=== PATIENT | female | born 1955 | race Hispanic/Latino ===

== ENCOUNTER 2019-04-18 04:42 | Observation (INO) | payer BC ==
[~2019-04-18] VITALS: Ht 154.9 cm; Wt 79.4 kg
[2019-04-18] MEDS ORDERED: FAMOTIDINE 20 MG/2 ML VIAL IV ONE (05:15)
[2019-04-18] MEDS ORDERED: ACETAMINOPHEN 325 MG TAB PO ONE (05:15)
[2019-04-18] MEDS ORDERED: ASPIRIN 81 MG CHEW TAB PO ONE (05:15)
[2019-04-18] MEDS ORDERED: ONDANSETRON HCL INJ 2MG/ML 2ML 2 MG/ML VIAL IV PRN ×3 (05:15→12:45)
[2019-04-18] MEDS ORDERED: NITROGLYCERIN 2% OINT 1 GM PKT TOP ONE (05:15)
[2019-04-18] MEDS ORDERED: ASPIRIN 325 MG TAB ONE (05:37)
[2019-04-18] MEDS ORDERED: NITROGLYCERIN 2% OINT 1 GM PKT ONE (05:37)
[2019-04-18] MEDS ORDERED: SODIUM CHLORIDE 0.9% 1000ML 1,000 ML IV STA (05:53)
[2019-04-18] MEDS ORDERED: SODIUM CHLORIDE 0.9% 1000ML 1,000 ML ONE ×2 (06:02→11:57)
[2019-04-18] MEDS ORDERED: IOPAMIDOL 370 MG/ML 200 ML INFUS..BTL INJ ONE ×2 (06:04→12:34)
[2019-04-18] MEDS ORDERED: SODIUM CHLORIDE 0.9% 50ML 50 ML ONE (06:05)
[2019-04-18] MEDS ORDERED: ENOXAPARIN SODIUM INJ 100 MG/ML SYR SC ONE ×2 (06:15→06:21)
[2019-04-18] MEDS ORDERED: ENALAPRILAT IV INJ 1.25 MG/ML VIAL IV PRN (06:15)
[2019-04-18] MEDS ORDERED: DIPHENHYDRAMINE HCL INJ 50 MG/ML VIAL IV PRN (06:15)
[2019-04-18] MEDS: FAMOTIDINE 20 MG/2 ML VIAL IV SCH ×2 (06:17→17:11)
[2019-04-18] MEDS ORDERED: HYDRALAZINE HCL 20 MG/ML VIAL ONE (06:29)
[2019-04-18] MEDS ORDERED: HYDRALAZINE HCL 20 MG/ML VIAL IV STA (06:34)
--- OUTSIDE RECORDS SUMMARY | 2019-04-18 06:34 | XMS REPORT ---
Author [facility] Address Unknown Phone Unavailable Care Team Providers Care Computer Security Specialist Name Role Phone BRIGIDO VARGAS Unavailable Unavailable Payers Payer Name Policy Type Policy Number Effective Date Expiration Date Problems This patient has no known problems. Allergies, Adverse Reactions, Alerts Allergy Name Allergy Type Status Severity Reaction(s) Onset Date Inactive Date Treating Clinician Comments No Known Allergies DA Active U 2013-03-24 00:00:00 Medications This patient has no known medications. Results Test Description Test Time Test Comments Text Results Atomic Results Result Comments Culture, Wound Surgical 2017-03-01 11:26:00 Specimen/Source: Wound/LT.SM. FINGERCollected: 02/24/2017 16:55 Status: Final Last Updated: 03/01/2017 11:26 Gram Stain (Final) (Final) 02/25/17 No organsims seen, No WBC's seen Culture Result (Final) (Final) 02/25/17 No growth 24 hours 02/26/17 No growth 48 hours 02/27/17 Smear from broth Gram positive cocci in clumps , Gramvariable rods 02/28/17 From broth Bacillus species (not anthrax) 03/01/17 Anaerobic culture:No anaerobes isolated at 3 days Isolate (Final) (Final) 02/28/17 From broth Staph-coag negative Isolate Staph-coag negative JESSICA (mcg/ml) Amoxicillin/Clav (AUG)>4/2 Resistant Ampicillin/Sulb (A/S) <=8/4 Resistant Cefazolin (CFZ) <=4 Resistant Ceftriaxone (LIVESTOCK LABORER) <=4 Resistant Chloramphenicol (C) <=8 Susceptible Ciprofloxacin (CP) <=1 Susceptible Clindamycin (CM) 0.5 Susceptible Erythromycin (E) <=0.25 Susceptible Gentamicin (GM) <=1 Susceptible Imipenem (IMP) >8 Resistant Levofloxacin (LEV) <=0.5 Susceptible Linezolid (LNZ) 1 Susceptible Oxacillin (OX1) 2 Resistant Penicillin (P) >8 Resistant Rifampin (RA) <=1 Susceptible Tetracycline (TE) <=1 Susceptible Trimethoprim/Sulfa <=0.5/9.Susceptible (SXT) 5 Vancomycin (VA) 2 Susceptible US THYROID ULTRASOUND CLINICAL INDICATION: E04.1 Nontoxic single thyroid noduleTECHNIQUE: Real time and doppler imaging of the thyroid is performed using a high frequency probe on the [employer] Pre[employer].Comparison Study: Comparison with exam 12/31/2017FINDINGS:Right lobe: 4.2 x 1.2 x 1.2 cm.Left lobe: 4.9 x 1.9 x 2.1 cm.Isthmus: 4.0 mm.Comments: 1. 0.9 x 0.4 x 0.6 cm cyst superior pole right thyroid, unchanged.2. 0.5 x 0.2 x 0.4 cm hypoechoic nodule mid right thyroid, with small calcifications, unchanged.3. 2.3 x 1.7 x 2.1 cm complex nodule inferior right gland (previous 2.6 x 1.6 x 1.8 cm).4. 2.0 x 1.4 x 1.5 cm superior left gland (previous 2.0 x 1.2 x 1.4 cm).5. 1.2 x 0.6 x 0.8 cm hypoechoic nodule in the mid left gland it appeared as if it were to nodules on previous exam.IMPRESSION:1. No significant change in gland size.2. Multiple nodules again seen.3. No significant change with measurement of complex inferior right gland nodule slightly smaller than previous exam. Continued surveillance are that there is a of left superior nodule can be considered. US THYROID ULTRASOUND CLINICAL INDICATION: E04.2 Nontoxic multinodular goiterTECHNIQUE: Real time and doppler imaging of the thyroid is performed using a high frequency probe on the [employer] Pre[employer].Comparison Study: noneFINDINGS:Right lobe: 4.3 x 1.1 x 1.0 cm.Left lobe: 4.9 x 1.9 x 1.6 cm.Isthmus: 1.6 mm.Comments: Multiple thyroid nodules are demonstrated. 0.9 x 0.6 cm right mid, 0.6 x 0.5 cm right inferior mid (with calcifications), 2.0 x 1.4 cm left mid, 2.6 x 1.9 x 1.6 cm left inferior and additional smaller thyroid nodules are demonstrated bilaterally.IMPRESSION:Multinodular goiter; consider FNA of left superior thyroid nodule based upon size and sonographic appearance. CR - XRAY XRAY DEXA BONE DENSITY CLINICAL INDICATION: N95.9 Unspecified menopausal and perimenopausal disorder TECHNIQUE: Bone densitometry is performed using the Hologic Dexa. Imaging of the spine and hip are performed. Quantitative analysis is accomplished.FINDINGS:COMPARISON: NoneThe BMD at the left femoral neck is 0.710 gms/cm.sq. This is consistent with young adult T- score of -1.4 and age matched Z-score of 0.0.The BMD at the right femoral neck is 0.686 gms/cm.sq. This is consistent with young adult T-score of -1.6 and age matched Z-score of -0.2.Average bone mineral density of L1 - L4 is 0.779 gms/cm.sq. This is consistent with young adult T-score of -2.4 and age matched Z-score of -0.8.IMPRESSION:WHO diagnostic category is osteopenia/borderline osteoporosis based upon lumbar spine and osteopenia based upon bilateral femoral necks.Recommendation: 2-year follow-up
--- NOTE | 2019-04-18 06:48 | Diagnostic Imaging Report ---
EXAMINATION: CXR 2 VIEW - HOPD INDICATION: ^[id number] ^[id number] COMPARISON: None FINDINGS: PA and lateral views TUBES and LINES: None. LUNGS: Lungs are well inflated. There is no evidence of pneumonia or pulmonary edema. PLEURA: No pleural effusion or pneumothorax. HEART AND MEDIASTINUM: The cardiomediastinal silhouette is unremarkable. BONES AND SOFT TISSUES: No acute osseous lesion. Soft tissues are unremarkable. UPPER ABDOMEN: No free air under the diaphragm. IMPRESSION: No acute thoracic abnormality. Signed by: Dr. Sam Tubbs MD on 04/18/2019 6:44 AM
--- NOTE | 2019-04-18 07:05 | Diagnostic Imaging Report ---
EXAM: CT Chest WITH contrast (PE Protocol) INDICATION: Chest pain. COMPARISON: Same day chest x-ray TECHNIQUE: Chest was scanned utilizing a multidetector helical scanner from the lung apex through the level of the diaphragm after administration of IV contrast. Thin section reconstructions were obtained with special concentration on the pulmonary arteries. Coronal and sagittal reformations were obtained. Dose modulation, iterative reconstruction, and/or weight based adjustment of the mA/kV was utilized to reduce the radiation dose to as low as reasonably achievable. Pulmonary embolism protocol was performed. IV CONTRAST: 100 mL of Isovue-370 COMPLICATIONS: None RADIATION DOSE: Total DLP: 391.99 mGy*cm Estimated effective dose: (DLP x 0.014 x size factor) mSv CTDIvol has been reviewed. It is below the limits set by the Radiation Protocol Committee (RPC). FINDINGS: LINES/ TUBES: None. LUNGS AND AIRWAYS: No filling defect is identified within the pulmonary arteries to the segmental level. 5 mm right upper lobe nodule. Mild bilateral lower lung field subsegmental atelectasis. Mild haziness of the lung flynn, suggestive of mild interstitial edema. Left upper lobe calcified granuloma. Airways are normal. PLEURA: The pleural spaces are clear. HEART AND MEDIASTINUM: Left thyroid hypodense nodule No mediastinal, hilar or axillary lymphadenopathy. The heart is normal in size.. There is no pericardial effusion. . Main pulmonary artery measures 3.3 cm in diameter and the ascending aorta measures 4 cm. UPPER ABDOMEN: Left hepatic lobe hypodensity is probably a cyst. Evidence of gastric surgery. Small hiatal hernia. BONES: The visualized bony thorax is within normal limits. SOFT TISSUES: Unremarkable. IMPRESSION: No pulmonary emboli. Suspected mild pulmonary edema. 5 mm right upper lobe nodule. Without risk factors, no follow-up is necessary. With risk factors, follow-up with low-dose chest CT in one year is optional. Distended main pulmonary artery, suggestive of pulmonary hypertension. Ectatic ascending thoracic aorta. Left thyroid hypodense nodule. Recommend correlation with thyroid ultrasound. Signed by: Dr. Sam Tubbs MD on 04/18/2019 7:01 AM
--- NOTE | 2019-04-18 07:45 | NUR ---
received pt via stretcher EMS from free standing ER. no acute distress noted. denies chest pain at this time. states CP alleviated after nitro received. oriented to room and use of call light, call light place within reach. PIV 20gause to right AC noted and saline locked.
[2019-04-18 08:00] VITALS: BP 132/63
[2019-04-18 08:06] VITALS: BP 132/63
[2019-04-18] MEDS: ACETAMINOPHEN 325 MG TAB PO PRN (08:48)
[2019-04-18 09:41] LABS: CREATINE KINASE 66 IU/L (29-168)
[2019-04-18] MEDS ORDERED: HYDRALAZINE HCL 20 MG/ML VIAL IV PRN (11:00)
[2019-04-18 11:20] VITALS: BP 96/54
[2019-04-18] MEDS ORDERED: SODIUM CHLORIDE 0.9% 1000ML 1,000 ML IV SCH ×3 (11:30→12:42)
[2019-04-18] MEDS ORDERED: LISINOPRIL2.5 MG PO (11:36)
[2019-04-18] MEDS ORDERED: SYNTHROID75 MCG PO (11:36)
[2019-04-18] MEDS: NITROGLYCERIN 2% OINT 1 GM PKT TOP SCH ×2 (12:00→17:11)
--- NOTE | 2019-04-18 12:00 | NUR ---
patient off unit for heart cath with possible intervention.
[2019-04-18] MEDS ORDERED: LIDOCAINE HCL 2% LOCAL 20 ML VIAL ONE (12:34)
[2019-04-18] MEDS ORDERED: FENTANYL CITRATE/PF 100MCG/2 ML INJ ONE (12:34)
[2019-04-18] MEDS ORDERED: HEPARIN SOD/SOD CHLORIDE 2,000 ML ONE (12:34)
[2019-04-18] MEDS ORDERED: MIDAZOLAM HCL 2 MG/2 ML VIAL ONE (12:34)
--- NOTE | 2019-04-18 12:50 | NUR ---
received pt from laboratory clerk, denies pain. dressing to right groin C/D/I. reinforced teaching on bedrest and maintaining RLE straight. call light placed within reach.
[2019-04-18] MEDS: SODIUM CHLORIDE 0.9% 1000ML 1,000 ML IV SCH ×2 (12:58→23:00)
[2019-04-18 14:50] LABS: BASOPHILS % 0.5 % (0.0-1.0); EOSINOPHILS % 0.2 % (0.0-6.0); HEMATOCRIT 37.8 % (34.2-44.1); HEMOGLOBIN 12.4 g/dL (12.0-16.0); LYMPHOCYTES # (AUTO) 1.5 (1.0-3.2); LYMPHOCYTES % 25.6 % (18.0-39.1); MEAN CORPUSCULAR HEMOGLOBIN 30.8 pg (28-32); MEAN CORPUSCULAR HGB CONC 32.8 g/dL (31-35); MONOCYTES # (AUTO) 0.6 (0.2-0.8); MONOCYTES % 9.4 % (4.4-11.3); NEUTROPHILS # (AUTO) 3.8 (2.1-6.9); NEUTROPHILS % 63.8 % (38.7-80.0); PLATELET COUNT 272 x10e3/uL (140-360); RED BLOOD COUNT 4.02 x10e6/uL (3.6-5.1); RED CELL DISTRIBUTION WIDTH 13.2 % (11.7-14.4)
[2019-04-18] MEDS: HYDROCODONE/APAP 5MG-325MG TAB PO PRN ×2 (15:05→21:22)
[2019-04-18 15:08] LABS: CREATINE KINASE 59 IU/L (29-168)
[2019-04-18 15:09] LABS: CHOL/HDL RATIO 2.6 (3.0-3.6)
[2019-04-18 15:29] LABS: THYROID STIMULATING HORMONE 0.557 uIU/mL (0.350-4.940)
[2019-04-18 16:11] VITALS: BP 136/75
--- NOTE | 2019-04-18 18:04 | NUR ---
bedrest s/p heart cath completed at this time. assisted patient with ambulating to toilet. no c/o pain to right groin. right groin tissue soft upon palpation. posterior tibial pulses 3+ bilateral. call light placed within reach.
--- NOTE | 2019-04-18 18:51 | Consultation ---
DATE OF CONSULTATION: 04/18/2019 REASON FOR CONSULTATION: Chest pain. HISTORY OF PRESENT ILLNESS: This is a 63-year-old female, who presents to outside ER with complaint of chest pain starting about 3:00 a.m., relieved with nitroglycerin. The patient was transferred to [facility] for further evaluation. Cardiology was consulted. The patient was seen in room, who reports history of hypertension and hypothyroidism, on therapy, lisinopril 5 mg daily, levothyroxine 75 mcg daily and a multivitamin. The patient reports the chest pain started about 3:00 a.m. this morning and reports chest pain as pressure tightness across her chest, as if someone was sitting on her chest. Therefore, when she went to the ER for further evaluation. She reports in the ER, they gave her nitroglycerin, which had subsided the chest pain. However, this morning reports the chest pain has reappeared, chest pain, pressure tightness across her chest, now radiating to her jaw and to her bilateral shoulders with some shortness of breath. The patient is very concerned with her symptoms. Options were discussed and the patient elects for definitive evaluation with left heart catheterization. Risks and benefits discussed with the patient. PAST MEDICAL HISTORY: Hypertension and hypothyroidism. PAST SURGICAL HISTORY: Gastric bypass in 2011. FAMILY HISTORY: Mother is alive, apparently age 87, has history of hypertension. Father is at age 84, apparently history of COPD and CHF. 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 She reports tobacco use some years ago, quit about 2008. Also reports alcohol use, wine on evening daily basis. HOME MEDICATIONS: Include: 1. Lisinopril 5 mg once a day. 2. Multivitamin once a day. 3. Levothyroxine 75 mcg once a day. ALLERGIES: NO KNOWN ALLERGIES. REVIEW OF SYSTEMS: GENERAL: Denies any weight change, fatigue, weakness, fevers, chills, night sweats. SKIN: No rashes or bruises reported. HEENT: Denies any headaches, nausea, vomiting, any blurred vision, double vision, any earaches, tinnitus, epistaxis, sore throat, swollen neck. CARDIAC: Reports chest pain as above. Denies any palpitations. Positive for dyspnea on exertion. Denies any orthopnea or PND. Reports intermittent lower extremity edema. RESPIRATORY: Positive for shortness of breath. Denies any hemoptysis. VASCULAR: Intermittent lower extremity edema. Denies any claudication. MUSCULOSKELETAL: Reports generalized joint pains, back pain. NEUROLOGIC: Denies any tremors, weakness, paralysis, blackout, seizures. HEMATOLOGY: Denies any anemia, easy bruising. ENDOCRINE: Denies any heat or cold intolerance. No polyuria, polydipsia, or polyphagia. PHYSICAL EXAMINATION: VITAL SIGNS: Height 61 inches, weight 175 pounds, BMI 33. Temperature 97.3, pulse 60, respiratory rate 18, blood pressure 132/63, pulse ox 98% on 2 L. GENERAL: Appears stated age, reliable informant. SKIN: No rashes, bruises noted. HEENT: Normocephalic. Pupils equal and reactive. Extraocular movements intact. NECK: Trachea midline. Positive for JVD. No carotid bruit noted. HEART: Regular rate and rhythm. PMI about 4th and 5th intercostal space. LUNGS: Bilateral breath sounds with fine crackles at the bases. Good airway entry and exit. ABDOMEN: Soft, nontender, and nondistended. No organomegaly noted. MUSCULOSKELETAL: Good muscle strength throughout. VASCULAR: Slight lower extremity edema +1, +2 bilateral radial pulses, +1 DP and PT pulses bilaterally. NEUROLOGIC: Cranial nerves II through XII seem intact. LABORATORY DATA: Sodium 142, potassium 4, chloride 107, bicarb 28, BUN 16, creatinine 0.7. Hemoglobin 12, hematocrit 38, platelets 268. D-dimer 852. CT chest, no PE, however, there is mild pulmonary edema and also noted with right upper lobe nodule, a 5 mm also left thyroid nodule noted. EKG, normal sinus khloe, heart rate about 56. ASSESSMENT: 1. Unstable angina. 2. Hypertension. 3. Hypothyroidism. 4. Right lower lobe nodule. 5. Left thyroid nodule. PLAN: The patient presents with very typical chest pain symptoms, unstable in nature. The patient is requesting definitive evaluation. Left heart catheterization discussed at length including risks and benefits. The patient wishes to proceed with left heart catheterization. Questions were answered. Further recommendation are as post left heart catheterization. Thank you very much for this consult. Dictated by Manoj Smith NP Sherin Whitaker MD DC/VANNESA /[id number]
--- NOTE | 2019-04-18 19:31 | Operative Report ---
DATE OF PROCEDURE: 04/18/2019 SURGEON: Netta Whitaker MD PROCEDURES PERFORMED: 1. Left heart catheterization, coronary angiography. 2. Left ventriculography. 3. Vascular closure of the right common femoral arteriotomy. INDICATION FOR PROCEDURE: A 63-year-old lady, history of hypertension, who presents to this institution with escalating chest pain symptoms, substernal pressure-like sensation with radiation to the shoulders, highly concerning for unstable angina and ongoing since this morning. The patient needed nitroglycerin paste for resolution of symptoms and has continuous low-level pain and discomfort in her chest and shoulders region. We were highly concerned for an acute coronary syndrome with class 4 angina. DESCRIPTION OF PROCEDURE: The patient was brought down to the cardiac catheterization laboratory on an urgent basis where the groin was prepped and draped in usual sterile fashion. A 1% lidocaine solution was used to numb the right groin region. Access to right femoral artery was obtained utilizing a 5-Canadian micropuncture system and a 6-Canadian short femoral sheath was placed. Selective coronary angiography of the [place] left and right coronary artery was performed with JL-4 and 3DRC diagnostic catheters. Angled pigtail catheter was placed in the ventricle for ventricular and hemodynamic assessment of ventricular filling pressures. After noting no significant disease, we decided to conclude the case. Femoral angiogram was performed revealing femoral artery stick and a 6-Canadian vascular closure device successfully deployed achieving hemostasis. COMPLICATIONS: None. ESTIMATED BLOOD LOSS: None. FINDINGS: 1. Left main is angiographically normal. Gives rise to an LAD and circumflex branch. 2. LAD and its branches are angiographically normal. 3. Left circumflex artery terminates two mid marginal branches. This vessel and its branches are angiographically normal. 4. The RCA is dominant, gives rise to right PDA and right PLV system. This vessel and its branches are angiographically normal. 5. Left ventricular ejection fraction is 60% with end-diastolic pressure of 17 mmHg. There is no significant LV to aortic pullback gradient. PLAN/RECOMMENDATIONS: 1. The patient has angiographically normal coronary arteries. We will need to entertain alternative diagnoses. 2. Aggressive risk factor modification and medical therapy. 3. Five to six hour bedrest post cardiac catheterization. 4. We will continue to follow this patient. MD HECTOR Smith/KRYSTAL /[id number]
--- NOTE | 2019-04-18 19:41 | History and Physical ---
CHIEF COMPLAINT: Chest pain. HISTORY OF PRESENT ILLNESS: A 63-year-old female with known history of hyperlipidemia, hypothyroidism, and questionable hypertension is what she states, also chronic smoker in the past, comes into the ED when she woke up suddenly around 3 a.m. with sudden onset of substernal chest pain that radiated to her bilateral shoulders. The patient reports that the chest pain continued and so she was driven by her daughter into the ER and given nitroglycerin paste. She did report some associated nausea, but no vomiting. Denies any diaphoresis. She has never had any heart issues in the past. She has never seen a truck jumper before. Denies any recent sickness, cough, congestion, or any other complaints. The patient was seen and evaluated at the bedside on the medical floor. Currently, she is doing well and scheduled for a left heart catheterization. REVIEW OF SYSTEMS: Pertinent positives: Substernal chest pain. Pertinent negatives: Denies any palpitation, nausea, vomiting, diarrhea, dysuria, hematuria, frequency, urgency, lightheadedness, dizziness, abdominal pain, headaches, shortness of breath, cough, congestion, fever, or any other complaints. The rest of the 14-point review of systems have been reviewed with the patient and are negative. ALLERGIES: NO KNOWN DRUG ALLERGIES. HOME MEDICATIONS: 1. Levothyroxine 75 mcg daily. 2. Lisinopril 2.5 mg daily. PAST MEDICAL HISTORY: Hypothyroidism, hypertension, and chronic smoker in the past, quit 10 years ago. PAST SURGICAL HISTORY: None. FAMILY HISTORY: Hypertension and diabetes. SOCIAL HISTORY: No drugs. No alcohol. She was a former smoker, quit 10 years ago. LAB FINDINGS: Show CK 66, CK-MB 1.4. Troponin is 0.001. Microbiology, none. IMAGING STUDIES: Chest x-ray is normal. Chest CT shows no pulmonary embolism. mild pulmonary edema. 5 mm right upper lobe nodule. She has been admitted for and pulmonary hypertension, and thyroid nodule, but she reports she follows with her developmental behavioral physician in relation to this. PHYSICAL EXAMINATION: VITAL SIGNS: Temperature is 96.4, pulse 62, respiratory rate of 16, blood pressure 132/60, and pulse ox 97% on room air. GENERAL: In no acute distress, alert and oriented x3. Cooperative on examination. HEENT: Head is normocephalic and atraumatic. Eyes; pupils are equal, round, and reactive to light bilaterally. Extraocular movements are intact bilaterally. Throat, no evidence of erythema or exudates in the posterior pharynx. She has poor dentition. NECK: Supple. Good range of motion. PULMONARY: Clear to auscultation bilaterally. No wheezing, no rales, no rhonchi, and no crackles appreciated. CARDIOVASCULAR: Positive S1, S2. No murmurs, rubs, or gallops appreciated. ABDOMEN: Soft, nondistended, and nontender to palpation. Bowel sounds present. MUSCULOSKELETAL: Strength is 5/5 throughout. No evidence of any muscle deficits on examination. No weakness appreciated. NEUROLOGICAL: Cranial nerves II through XII grossly intact. No evidence of any neurological deficits on exam. SKIN: Intact. Warm to touch. Good cap refill. PSYCHIATRIC: Normal affect and mood. EXTREMITIES: No edema. Good range of motion throughout. IMPRESSION: 1. Chest pain, seems to be typical in nature based on the history. 2. Hypertension. 3. Hypothyroidism. PLAN: At this time, Cardiology has been consulted, scheduled for a left heart catheterization later this afternoon. Continue with aspirin and statin. Get lipid panel, hemoglobin A1c, and TSH level. Resume SANDY inhibitor after the heart cath the following day. Continue with cardioprotective medications. Resume same home medications. Get a.m. labs, CBC and chemistry. We will encourage the patient for ambulation. She is currently going to be n.p.o. for left heart catheterization. We will start a heart-healthy diet after the heart catheterization. Once she is being cleared by Cardiology, we will discharge her home. She is otherwise doing well. She is stable during my evaluation. I have discussed the plan of care with the nursing staff. MD LAZARA Courtney/VANNESA /[id number]
[2019-04-18 20:00] VITALS: BP 126/60
[2019-04-18] MEDS: ZOLPIDEM TARTRATE 5 MG TAB PO PRN (21:26)
[2019-04-18 22:16] VITALS: BP 136/75
[2019-04-18 23:11] LABS: CREATINE KINASE 45 IU/L (29-168)
[2019-04-19] VITALS (8 sets, daily range): BP systolic 100–164; BP diastolic 56–82
[2019-04-19] MEDS: SODIUM CHLORIDE 0.9% 1000ML 1,000 ML IV SCH ×2 (03:59→19:00)
[2019-04-19] MEDS: HYDROCODONE/APAP 5MG-325MG TAB PO PRN ×2 (03:59→19:31)
[2019-04-19 04:57] LABS: BASOPHILS % 0.8 % (0.0-1.0); EOSINOPHILS # (AUTO) 0.1 (0.0-0.4); EOSINOPHILS % 1.2 % (0.0-6.0); HEMATOCRIT 32.8 % (34.2-44.1); HEMOGLOBIN 10.7 g/dL (12.0-16.0); LYMPHOCYTES # (AUTO) 1.5 (1.0-3.2); LYMPHOCYTES % 29.1 % (18.0-39.1); MEAN CORPUSCULAR HEMOGLOBIN 30.8 pg (28-32); MEAN CORPUSCULAR HGB CONC 32.6 g/dL (31-35); MEAN CORPUSCULAR VOLUME 94.5 fL (81-99); MONOCYTES # (AUTO) 0.4 (0.2-0.8); MONOCYTES % 8.2 % (4.4-11.3); NEUTROPHILS % 60.1 % (38.7-80.0); PLATELET COUNT 237 x10e3/uL (140-360); RED BLOOD COUNT 3.47 x10e6/uL (3.6-5.1); RED CELL DISTRIBUTION WIDTH 13.3 % (11.7-14.4)
[2019-04-19 05:27] LABS: ALANINE AMINOTRANSFERASE 331 IU/L (0-55); ALBUMIN/GLOBULIN RATIO 1.4 (0.8-2.0); ALKALINE PHOSPHATASE 146 IU/L (40-150); ANION GAP 6.8 mmol/L (8-16); BLOOD UREA NITROGEN 8 mg/dL (7-26); BUN/CREATININE RATIO 12 (6-25); CALCIUM 8.6 mg/dL (8.4-10.2); CARBON DIOXIDE 23 mmol/L (22-29); CHLORIDE 108 mmol/L (98-107); CREATININE, SERUM 0.65 mg/dL (0.57-1.11); EST GLOMERULAR FILTRATION RATE > 60 ML/MIN (60-); GLUCOSE 82 mg/dL (74-118); POTASSIUM 3.8 mmol/L (3.5-5.1); SODIUM 134 mmol/L (136-145)
[2019-04-19] MEDS: LEVOTHYROXINE SODIUM 75 MCG TAB PO SCH (05:58)
[2019-04-19] MEDS: NITROGLYCERIN 2% OINT 1 GM PKT TOP SCH ×2 (06:00)
[2019-04-19 06:23] LABS: CHOL/HDL RATIO 2.1 (3.0-3.6)
[2019-04-19] MEDS: FAMOTIDINE 20 MG/2 ML VIAL IV SCH (06:47)
--- NOTE | 2019-04-19 07:15 | NUR ---
Walking rounds done and report received. Patient is awake and alertx3 in NAD. Right groin cath site intact, no hematoma or bleeding noted. Tele#[phone], [email or web address]. Patient instructed to call for assistance as needed and verbalized understanding. Call pearl within reach.
--- NOTE | 2019-04-19 07:20 | NUR ---
report given to Clara COOPER, iv intact, alert and oriented, groin site checked
[2019-04-19] MEDS: ASPIRIN 81 MG ENTERIC COATED PO SCH (08:23)
[2019-04-19] MEDS ORDERED: ASPIRIN 325 MG TAB PO SCH (09:00)
[2019-04-19] MEDS: ACETAMINOPHEN 325 MG TAB PO PRN (10:26)
--- NOTE | 2019-04-19 11:50 | NUR ---
Discharge cancelled per Dr. Hawkins for elevated LFT's. MD discussed with patient.
--- NOTE | 2019-04-19 14:19 | Diagnostic Imaging Report ---
EXAM: US ABDOMEN COMPLETE INDICATION: Elevated LFTs. COMPARISON: None TECHNIQUE: Transverse and longitudinal aguirre scale and color doppler sonographic images of the abdomen were obtained. FINDINGS: LIVER Measures 17.6 cm in the right midclavicular line. Multiple echogenic foci in the liver with a starry celeste appearance. No hepatic steatosis. Normal contour without evidence of mass. SPLEEN 10.0 cm in maximum diameter. Normal echogenicity, no masses. GALLBLADDER Gallbladder sludge. No gallbladder wall thickening, distension, stone, or pericholecystic fluid. Negative reported sonographic Garcia's sign. BILE DUCTS No intra nor extra-hepatic biliary dilation. Common bile duct measures 0.4 cm PANCREAS: Visualized portions are normal. RIGHT KIDNEY: 10.4 cm Echogenicity: Normal Collecting System: No hydronephrosis Stones: None Cyst/Mass: None LEFT KIDNEY: 10.9 cm Echogenicity: Normal Collecting System: No hydronephrosis Stones: None Cyst/Mass: None VESSELS: Aorta: Visualized portions are within normal size limits Inferior Vena Cava: Visualized portions are normal Main Portal Vein: 0.8 cm, normal size with hepatopetal flow. FREE FLUID: None IMPRESSION: Hepatomegaly. Starry celeste appearance of the liver, which is a nonspecific finding, but could be seen in hepatitis or fasting state. Gallbladder sludge without sonographic evidence of cholecystitis. Signed by: Dr. Catarino Taylor MD on 04/19/2019 2:16 PM
--- NOTE | 2019-04-19 14:50 | Progress Note ---
DATE: 04/19/2019 SUBJECTIVE: The patient is doing well today with no complaints. She had a left heart catheterization yesterday, found to have clear coronaries, does not need a PCI. She was found to have elevated LFTs. Reports also her urine is more dark. She also describes lower back pain, but no evidence of any flank pain or any suprapubic pain. LABORATORY DATA: Findings show white count of 4.9, hemoglobin 10.7, hematocrit 32.8, and platelets of 237. Chemistry, sodium 134, potassium 3.8, chloride 108, bicarb 23, anion gap of 6.8, BUN is 8, and creatinine is 0.65. Glucose 82. Hemoglobin A1c is 5.2. Calcium is 8.6, total albumin 2.1, AST 392, and ALT 331. Alkaline phosphatase 146. Troponins are all negative. LDL is 86. IMAGING STUDIES: None. OBJECTIVE: VITAL SIGNS: Temperature is 97.6, pulse is 51, respiratory rate 16, blood pressure 147/76, and pulse ox 99% on room air. GENERAL: Not in acute distress. Alert and oriented x3. Cooperative on examination. HEENT: Head is normocephalic and atraumatic. Eyes, pupils are equal, round, and reactive to light bilaterally. Extraocular movements are intact. NECK: Supple. Good range of motion. THROAT: No evidence of erythema or exudates in the posterior pharynx. Has poor dentition. PULMONARY: Clear to auscultation bilaterally. No wheezing. No rales. No rhonchi. No crackles appreciated. CARDIOVASCULAR: Positive S1 and S2. No murmurs, rubs, or gallops. ABDOMEN: Soft, nondistended, and nontender to palpation. Bowel sounds present. MUSCULOSKELETAL: Strength is 5/5 throughout. No evidence of any muscle deficits on examination. No weakness appreciated. NEUROLOGICAL: Cranial nerves II through XII grossly intact. No evidence of any neurological deficits on exam. SKIN: Intact. Warm to touch. Good cap refill. PSYCHIATRIC: Normal affect and mood. EXTREMITIES: No edema. Good range of motion throughout. ASSESSMENT: 1. Chest pain, atypical in nature. Negative left heart catheterization. 2. Hypertension. 3. Elevated transaminases, no etiology. 4. Hypothyroidism. PLAN: At this time, no further workup needed by Cardiology. Continue with cardioprotective medications, aspirin, and statin upon discharge. In relation to her elevated LFTs, I will go ahead and get a right upper quadrant ultrasound, CT of abdomen and pelvis with IV contrast and GI consultation. Get CMP repeat in the morning as well as a lipase right now. Await GI recommendations on this case. Otherwise, the patient is tolerating diet well, has no other complaints. I am not sure of the etiology of the elevated LFTs. We will see what it reveals and go from there. MD LAZARA Courtney/KRYSTAL /[id number]
[2019-04-19] MEDS ORDERED: SODIUM CHLORIDE 0.9% 50ML 50 ML ONE (15:23)
[2019-04-19] MEDS ORDERED: IOPAMIDOL 370 MG/ML 200 ML INFUS..BTL INJ ONE (15:24)
--- NOTE | 2019-04-19 16:00 | NUR ---
Patient off unit to CT
--- NOTE | 2019-04-19 16:11 | Diagnostic Imaging Report ---
EXAM: CT Abdomen and Pelvis with contrast INDICATION: Elevated LFTs COMPARISON: Abdominal ultrasound 04/19/2019, CT Chest 04/18/2019. TECHNIQUE: Abdomen and pelvis were scanned utilizing a multidetector helical scanner from the lung base to the pubic symphysis after administration of IV contrast. Coronal and sagittal reformations were obtained. Routine protocol was performed. Scan was performed when during portal venous phase. IV CONTRAST: 100 cc of Isovue 370 ORAL CONTRAST: Water COMPLICATIONS: None RADIATION DOSE: Total DLP: 665.6 mGy*cm Dose modulation, iterative reconstruction, and/or weight based adjustment of the mA/kV was utilized to reduce the radiation dose to as low as reasonably achievable. FINDINGS: LINES and TUBES: None. LOWER THORAX: Please refer to chest CT from 04/18/2019 for details of intrathoracic findings. HEPATOBILIARY: Hepatomegaly. Left hepatic lobe cyst. No biliary ductal dilatation. There is a 1.9 cm hyperdense area with a somewhat linear internal hypodensity in the peripheral posterior aspect of segment 6. GALLBLADDER: No radio-opaque stones or sludge. No wall thickening. SPLEEN: No splenomegaly. PANCREAS: No focal masses or ductal dilatation. ADRENALS: No adrenal nodules KIDNEYS/URETERS: Kidneys enhance symmetrically. No evidence of hydronephrosis, solid mass, or stone. 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 No evidence of wall thickening or distension. Appendix is normal. PELVIC ORGANS/BLADDER: Calcified fibroid in the uterus. LYMPH NODES: No lymphadenopathy. VESSELS: Unremarkable. PERITONEUM / RETROPERITONEUM: No free air or fluid. BONES AND SOFT TISSUES: There is stranding in the right inguinal region, likely representing access site for recent cardiac angiography. CONCLUSION: A 1.9 cm hyperdense area in the peripheral aspect of segment 6 may represent perfusional change or a liver lesion. A liver protocol CT or MRI is suggested for further evaluation. Hepatomegaly. Signed by: Dr. Catarino Taylor MD on 04/19/2019 4:07 PM
--- NOTE | 2019-04-19 19:00 | NUR ---
Report given to oncoming nurse.
[2019-04-19] MEDS: FAMOTIDINE 20 MG TAB PO SCH (21:52)
[2019-04-19] MEDS: ZOLPIDEM TARTRATE 5 MG TAB PO PRN (23:21)
[2019-04-20 00:33] VITALS: BP 139/73
[2019-04-20] MEDS: SODIUM CHLORIDE 0.9% 1000ML 1,000 ML IV SCH ×3 (05:00→21:20)
[2019-04-20] MEDS: LEVOTHYROXINE SODIUM 75 MCG TAB PO SCH (05:16)
[2019-04-20 05:24] VITALS: BP 120/59
[2019-04-20 06:11] LABS: BASOPHILS % 0.2 % (0.0-1.0); HEMATOCRIT 31.4 % (34.2-44.1); HEMOGLOBIN 10.5 g/dL (12.0-16.0); LYMPHOCYTES # (AUTO) 1.1 (1.0-3.2); LYMPHOCYTES % 12.1 % (18.0-39.1); MEAN CORPUSCULAR HEMOGLOBIN 31.2 pg (28-32); MEAN CORPUSCULAR HGB CONC 33.4 g/dL (31-35); MEAN CORPUSCULAR VOLUME 93.2 fL (81-99); MONOCYTES # (AUTO) 0.9 (0.2-0.8); NEUTROPHILS # (AUTO) 6.8 (2.1-6.9); NEUTROPHILS % 77.2 % (38.7-80.0); PLATELET COUNT 230 x10e3/uL (140-360); RED BLOOD COUNT 3.37 x10e6/uL (3.6-5.1); RED CELL DISTRIBUTION WIDTH 13.3 % (11.7-14.4)
[2019-04-20 06:12] LABS: ALANINE AMINOTRANSFERASE 219 IU/L (0-55); ALBUMIN/GLOBULIN RATIO 1.3 (0.8-2.0); ALKALINE PHOSPHATASE 186 IU/L (40-150); ANION GAP 8.3 mmol/L (8-16); BLOOD UREA NITROGEN 5 mg/dL (7-26); BUN/CREATININE RATIO 8 (6-25); CALCIUM 8.9 mg/dL (8.4-10.2); CARBON DIOXIDE 24 mmol/L (22-29); CHLORIDE 106 mmol/L (98-107); EST GLOMERULAR FILTRATION RATE > 60 ML/MIN (60-); GLUCOSE 96 mg/dL (74-118); POTASSIUM 3.3 mmol/L (3.5-5.1); SODIUM 135 mmol/L (136-145)
--- NOTE | 2019-04-20 06:55 | NUR ---
Patient endorsed to next shift for continuity of care
[2019-04-20 06:57] LABS: FERRITIN 96.06 ng/mL (4.63-204.00)
--- NOTE | 2019-04-20 07:00 | NUR ---
received am report from rn. pt is awake in bed, no s/s of distress. pt complaining of headache constant headache that she has had since admission. will provide tylenol, notify dr and continue to monitor.
[2019-04-20 07:14] LABS: FOLATE 14.8 ng/mL (7.0-15.4)
[2019-04-20] MEDS: LISINOPRIL 2.5 MG TAB PO SCH (07:52)
[2019-04-20 08:13] VITALS: BP 118/56
[2019-04-20] MEDS ORDERED: GADOBENATE DIMEGLUMINE 1 ML IV ONE (09:39)
[2019-04-20] MEDS: ASPIRIN 81 MG ENTERIC COATED PO SCH (10:30)
[2019-04-20] MEDS: FAMOTIDINE 20 MG TAB PO SCH ×2 (10:30→20:41)
[2019-04-20] MEDS: ACETAMINOPHEN 325 MG TAB PO PRN ×2 (10:30→22:05)
[2019-04-20] MEDS ORDERED: ONDANSETRON HCL 4 MG ORAL DISINTEGRATING TAB PO PRN (11:15)
[2019-04-20 11:39] VITALS: BP 112/53
--- NOTE | 2019-04-20 13:39 | Diagnostic Imaging Report ---
MRI abdomen CPT code: 23956 Indication: Incidental liver mass on CT ^LIVER MASS PROTOCOL ^Y Technique: Axial T1 nonfat sat in and out of phase, axial T2 fat sat, coronal T2 nonfat sat, axial DWI and ADC MR images of the abdomen were obtained before and after the administration of 15 cc of gadolinium. Axial T1 fat sat GRE dynamic images in precontrast, arterial, venous and delayed phases were obtained. Comparison: CT abdomen/pelvis 04/19/2019 Findings: Liver: Normal signal. A cyst in segment 2/4 measures 1.5 x 1.0 cm. A 4 mm cyst is identified in segment 6. Rounded area of increased T2 signal abuts the capsule in the posterior aspect of segment 6 measures 1.9 x 2.7 cm. There are 2 subcentimeter foci of decreased T2 and T1 signal within. With contrast administration, there is a wedge-shaped area of hypervascularity measuring 2.6 x 2.5 cm. Within this is more focal hypervascularity in the rounded configuration measuring 1.4 x 1.2 cm. On the portal venous phase, it has a more uniform enhancing appearance with absence of enhancement of one of the subcentimeter foci mentioned above. On the delayed phase, there is nearly iso-signal without no evidence of washout and there is no evidence of enhancement of the subcentimeter foci. There are 2 round hypervascular foci in segment 6 (series 10, image 74) and segment 5 abutting the gallbladder (series 10, image 90). These measure approximately 6 to 7 mm. There is no evidence of washout on delayed series. Portal vein: Normal in size and widely patent. Hepatic veins: Normal. Hepatic artery: Conventional branching. Gallbladder: Present and contains a tiny amount of sludge and a tiny gallstone. No gallbladder wall thickening or pericholecystic fluid. Biliary tree: No intrahepatic or extrahepatic biliary ductal dilatation. Pancreas: Normal T1 and T2 signal. No mass or ductal dilatation. Spleen: Normal size and signal. No mass Adrenal glands: No mass Kidneys: No hydronephrosis. No mass Lymph nodes: No enlarged abdominal or periaortic lymph nodes Bowel: Stomach and visualized portions of the small bowel and large bowel are normal in diameter with normal wall thickness. Mild burden of diverticulosis coli. Vasculature: Unremarkable. Pelvis: Visualized pelvic organs are unremarkable. Peritoneum/retroperitoneum: No free fluid or fluid collection. Lung bases: Trace posterior pleural effusions. Bones: Normal marrow signal. No focal osseous lesions. Soft tissues: Unremarkable. IMPRESSION: 1. Mass in the right lobe of the liver has no diagnostic features by MRI. However, the presence of iso-signal and the absence of washout on delayed sequences raises the possibility of an FNH. Recommend confirmation with MRI utilizing a liver specific contrast agent such as gadoxetate. 2. Scattered hepatic cysts as described above. A subcentimeter hypervascular lesion in the right lobe the liver is likely a shunt. 3. No abnormalities of the gallbladder and biliary tree. 4. Diverticulosis coli. Signed by: Dr. Lilly Rivera MD on 04/20/2019 1:36 PM
[2019-04-20 16:14] VITALS: BP 104/51
--- NOTE | 2019-04-20 16:25 | NUR ---
REMOVED R GROIN DRESSING FROM HEART CATH PROCEDURE DONE ON 04/18/19. SCANT BLEEDING ON GAUZE, NO ACTIVE BLEEDING/DRAINAGE. NO S/S OF INFECTION. PLACED NEW DRESSING.
--- NOTE | 2019-04-20 19:30 | NUR ---
Rounding done & report received. Patient resting in bed, awake & alert. Respirations even & unlabored, no distress noted. Tele in place. IV fluids running to R AC, patent & no infiltration noted. Patient denies any CP or issues at this time. Call light within reach, side railsx2 raised & bed set to lowest position.
--- NOTE | 2019-04-20 19:57 | Diagnostic Imaging Report ---
Hepatobiliary Scan with Gallbladder Ejection Fraction Clinical information: Upper abdominal pain; abnormal LFTs; Report: Following intravenous administration of 6.6 millicuries of Tc-99m mebrofenin, dynamic images of the abdomen in the anterior projection were obtained through 25 minutes. Sincalide (CCK analog) 1.6 micrograms was administered intravenously over 30 minutes with additional imaging for determination of gallbladder ejection fraction. Perfusion to the liver is normal. Extraction of tracer from the blood pool by the liver parenchyma is normal. Tracer is seen promptly within the biliary tract. The gallbladder begins to fill by 7 minutes post-injection of tracer and fills adequately. Tracer is seen in the small bowel by 12 minutes. The gallbladder ejection fraction with administration of sincalide is 96% (normal greater than 40%). Impression: 1. Filling of the gallbladder excludes the diagnosis of acute cystic duct obstruction/acute cholecystitis. 2. Normal gallbladder ejection fraction of 96% does not support the clinical diagnosis of chronic cholecystitis/gallbladder dyskinesia. Signed by: Dr. Shelbie Lu M.D. on 04/20/2019 7:54 PM
[2019-04-20 20:00] VITALS: BP 129/61
--- NOTE | 2019-04-20 20:42 | Progress Note ---
DATE: 04/20/2019 SUBJECTIVE: The patient is doing well today with no complaints. Imaging studies were performed today, found to have no conclusive results. HIDA scan is pending for today. Discussed case with the patient and awake per GI final recommendations. Vital signs: Temperature is 97.8, pulse 52, respiratory rate 16, blood pressure 104/51, pulse ox 96% on room air. LAB FINDINGS: Show white count 8.8, hemoglobin 10.5, hematocrit 31, and platelets of 230. Chemistry: Sodium 135, potassium 3.3, chloride 106, bicarb 21, anion gap of 8.3, BUN is 5, creatinine is 0.6. Her LFTs are down trending. Total bilirubin is 1.5, AST is 167, and ALT is 219, alkaline phosphatase 186, and iron saturation 7%. PHYSICAL EXAMINATION: GENERAL: Not in acute distress. Alert and oriented x3. Cooperative on examination. HEENT: Head is normocephalic and atraumatic. Eyes; pupils are equal, round, and reactive to light bilaterally. Extraocular movements are intact bilaterally. Throat, no evidence of erythema or exudates in the posterior pharynx. Has poor dentition. PULMONARY: Clear to auscultation bilaterally. No wheezing, no rales, no rhonchi, no crackles appreciated. CARDIOVASCULAR: Positive S1, S2. No murmurs, rubs, or gallops. ABDOMEN: Soft, nondistended, and nontender to palpation. Bowel sounds present. MUSCULOSKELETAL: Strength is 5/5 throughout. No evidence of any muscle deficits on examination. No weakness appreciated. NEUROLOGIC: Cranial nerves II through XII grossly intact. No evidence of any neurological deficits on exam. SKIN: Intact. Warm to touch. Good cap refill. PSYCHIATRIC: Normal affect and mood. EXTREMITIES: No edema. Good range of motion throughout. IMPRESSION: 1. Atypical chest pain, left heart catheterization found to be negative. 2. Hypertension. 3. Elevated transaminases now downtrending. 4. Hypothyroidism. 5. Liver lesions seen on MRI. PLAN: At this time, continue cardioprotective meds, Cardiology is following. No further workup was needed. MRI of the abdomen noted. Right upper quadrant ultrasound noted. CT abdomen and pelvis noted, but now pending HIDA scan. She may need an outpatient MRI with IV contrast to further delineate the cyst that was found on the liver, but this can be done as an outpatient. Wait for final GI recommendations. Hopefully active plan to discharge the patient tomorrow if I get clearance by GI. MD LAZARA Courtney/VANNESA /[id number]
[2019-04-21] VITALS: BP 118/59
[2019-04-21 00:03] VITALS: BP 129/61
[2019-04-21 04:00] VITALS: BP 126/60
[2019-04-21 05:46] LABS: BASOPHILS % 0.5 % (0.0-1.0); EOSINOPHILS # (AUTO) 0.2 (0.0-0.4); HEMATOCRIT 30.7 % (34.2-44.1); LYMPHOCYTES # (AUTO) 1.8 (1.0-3.2); LYMPHOCYTES % 30.8 % (18.0-39.1); MEAN CORPUSCULAR HEMOGLOBIN 31.2 pg (28-32); MEAN CORPUSCULAR HGB CONC 32.6 g/dL (31-35); MEAN CORPUSCULAR VOLUME 95.6 fL (81-99); MONOCYTES # (AUTO) 0.8 (0.2-0.8); MONOCYTES % 14.3 % (4.4-11.3); NEUTROPHILS # (AUTO) 2.9 (2.1-6.9); NEUTROPHILS % 50.7 % (38.7-80.0); PLATELET COUNT 202 x10e3/uL (140-360); RED BLOOD COUNT 3.21 x10e6/uL (3.6-5.1); RED CELL DISTRIBUTION WIDTH 13.6 % (11.7-14.4)
[2019-04-21] MEDS: LEVOTHYROXINE SODIUM 75 MCG TAB PO SCH (06:19)
[2019-04-21 06:20] LABS: ALANINE AMINOTRANSFERASE 158 IU/L (0-55); ALBUMIN 2.8 g/dL (3.5-5.0); ALBUMIN/GLOBULIN RATIO 1.2 (0.8-2.0); ALKALINE PHOSPHATASE 175 IU/L (40-150); ANION GAP 7.6 mmol/L (8-16); BLOOD UREA NITROGEN 6 mg/dL (7-26); BUN/CREATININE RATIO 11 (6-25); CALCIUM 8.7 mg/dL (8.4-10.2); CARBON DIOXIDE 24 mmol/L (22-29); CHLORIDE 109 mmol/L (98-107); CREATININE, SERUM 0.57 mg/dL (0.57-1.11); EST GLOMERULAR FILTRATION RATE > 60 ML/MIN (60-); GLUCOSE 89 mg/dL (74-118); POTASSIUM 3.6 mmol/L (3.5-5.1); SODIUM 137 mmol/L (136-145)
--- NOTE | 2019-04-21 07:00 | NUR ---
RECEIVED AM REPORT FROM RN. PT IS RESTING IN BED, NO S/S OF DISTRESS. CALL LIGHT WITHIN REACH, BED IN LOWEST POSITION, SIDE RAILS UP
[2019-04-21 07:41] VITALS: BP 147/65
[2019-04-21] MEDS: FAMOTIDINE 20 MG TAB PO SCH (07:46)
[2019-04-21 07:47] VITALS: BP 147/65
[2019-04-21] MEDS: LISINOPRIL 2.5 MG TAB PO SCH (07:47)
[2019-04-21] MEDS ORDERED: IRON SUCROSE 100 MG in SODIUM CHLORIDE 0.9% 100 ML 100 ML IV SCH (08:00)
[2019-04-21] MEDS: SODIUM CHLORIDE 0.9% 1000ML 1,000 ML IV SCH (08:28)
[2019-04-21] MEDS ORDERED: CYANOCOBALAMIN INJ 1,000 MCG/ML VIAL IM SCH (09:00)
--- NOTE | 2019-04-21 11:06 | NUR ---
IVETH spoke with Dr. Justine Yeager. He states pt is cleared to discharge from his standpoint. ALLISON Denney was notified. Dr. Hawkins currently rounding.
[2019-04-21 11:31] VITALS: BP 145/68
--- NOTE | 2019-04-21 20:33 | Discharge Summary ---
FINAL DISCHARGE DIAGNOSES: 1. Atypical chest pain status post left heart catheterization, found to be negative with clear and clean coronaries. No intervention needed. 2. Hypertension. 3. Acute elevated transaminases, now downtrending and improved. 4. Hypothyroidism. 5. Liver lesion seen on MRI, needs outpatient followup with Gastroenterology in which the patient verbalized understanding. CONSULTANTS: GI and Cardiology. VITAL SIGNS: Temperature 98.5, pulse 64, respiratory rate is 18, blood pressure 147/65, pulse ox 95% on room air. LAB FINDINGS: Show white count was 5.7, hemoglobin 10, hematocrit is 30, platelets of 202. Chemistry; sodium 137, potassium 3.6, chloride 109, bicarb 24, anion gap of 7.6, BUN 6, creatinine 0.57, glucose is 89, calcium is 8.7. Iron saturation 7%. LFT downtrended; total bilirubin is 1, AST is 101, ALT 158, alkaline phosphatase 175. Albumin was 2.8. Folic acid 14. Vitamin B12 of 499. TSH is 0.557. Hepatitis panel all negative. MICROBIOLOGY: None. IMAGING STUDIES: Chest x-ray on admission was found to be negative. CTA of the chest shows no pulmonary emboli. Suspect mild pulmonary edema. 5 mm right upper lobe nodule, needs outpatient followup. I discussed with the patient, she verbalized understanding and follow up with her PCP. Left thyroid hypodense nodule. She follows up with an associate professor of physics as an outpatient. CT abdomen and pelvis shows a 1.9 cm hypodense area in the peripheral aspect of segment , changes, there are liver lesions. HIDA scan shows a normal gallbladder ejection fraction of 96%. MRI of the abdomen; mass in the right lobe of the liver has no diagnostic features by MRI. I recommend outpatient followup with an MRI of the liver. There is some hepatic cyst seen. The patient verbalized to follow up as an outpatient with GI for further management and care. HOSPITAL COURSE: This is a 63-year-old female, who came in initially with complaints of sudden onset of chest pain. Cardiology was consulted. Cardiac enzymes were negative. The patient underwent a left heart catheterization and found to have no intervention needed. She had clear and clean coronaries. No intervention was needed by Cardiology. While here, she had acute onset of elevated transaminases requiring GI consultation. Imaging studies were performed, which showed no evidence of any gallbladder abnormalities, but did show a liver mass consistent with some hyperperfusion. She was recommended to follow up as an outpatient with GI. She was cleared for discharge by GI standpoint. At this time, she is doing well, tolerating diet well with no other complaints. She is to follow up with the appropriate consultants as described above in about 2 weeks' time. On the day of discharge, vital signs stable, labs reviewed and stable. The patient was seen, evaluated, examined thoroughly on the day of discharge, no other complaints. The patient verbalized understanding and agreed to plan of care, follow up accordingly as an outpatient with the primary care physician in 1 week and Cardiology and GI in 2 weeks' time. MEDICATIONS: See med reconciliation form. DISPOSITION: Home. CONDITION: Stable. DIET: Heart healthy. In the event of any worsening symptoms, the patient was advised to come back to the ED for further evaluation. Discharge summary took greater than 35 minutes. Once again, she verbalized that she will follow up as an outpatient GI specialist in terms of looking further into this liver lesion likely to be cyst or possibly hemangioma, but she will follow up accordingly as an outpatient. MD LAZARA Courtney/VANNESA /[id number]
== END 2019-04-21 12:35 | disposition home or self-care (01) ==
LOC: FSED 04:42 → ERHOLD 06:07 → MED/SURG2 07:56
PROVIDERS: ADMIT Internal Medicine; ATTEND Internal Medicine
DX: R07.89 Other chest pain (principal); R00.1 Bradycardia, unspecified; I10 Essential (primary) hypertension; E03.9 Hypothyroidism, unspecified; Z98.84 Bariatric surgery status; E78.5 Hyperlipidemia, unspecified; Z87.891 Personal history of nicotine dependence; Z82.49 Family history of ischemic heart disease and other diseases of the circulatory system; Z83.3 Family history of diabetes mellitus; R74.0 Nonspecific elevation of levels of transaminase and lactic acid dehydrogenase [LDH]; R79.89 Other specified abnormal findings of blood chemistry; K76.89 Other specified diseases of liver; K82.8 Other specified diseases of gallbladder; D64.9 Anemia, unspecified; Z72.89 Other problems related to lifestyle; Z86.010 Personal history of colon polyps; R91.8 Other nonspecific abnormal finding of lung field; E04.1 Nontoxic single thyroid nodule
CPT/HCPCS: 36415; 71046; 71260; 74177; 74183; 76700; 78227; 80053; 80061; 82550; 82553; 82607; 82728; 82746; 83036; 83540; 83690; 83880; 84443; 84466; 84484; 85025; 85045; 85379; 93005; 93306; 93458; 96360; 96361; 99284; A9537; C1760; C1769; G0378; J0360; J1200; J1650; J1756; J2001; J2250; J2405; J3420; J7030; Q9967

== ENCOUNTER 2020-04-04 13:02 | Emergency (ER) | payer BC ==
[~2020-04-04] VITALS: Ht 154.9 cm; Wt 77.1 kg
[~2020-04-04 13:02] MED LIST: LISINOPRIL2.5 MG PO; SYNTHROID75 MCG PO
--- OUTSIDE RECORDS SUMMARY | 2020-04-04 13:06 | XMS REPORT ---
Author Author [facility] t Organization [facility] Address [address] [place] [address] Phone Unavailable Care Team Providers Care Office Messenger Name Role Phone Sandor MARRERO PCP Sheri Hernandez Attphys Unavailable Elaine DOUGLASS Attphys Unavailable BRIGIDO VARGAS Attphys Unavailable DAElaine YAN Admphys Unavailable BRIGIDO VARGAS Admphys Unavailable Payers Payer Name Policy Type Policy Number Effective Date Ex[facility] Date [id number] 2014 00:00:00 [facility] Problems Condition Name Condition Details Condition Category Status Onset Date Resolution Date Last Treatment Date Treating Clinician Comments Source Chest pain at rest Chest pain at rest Problem Active [facility] Allergies, Adverse Reactions, Alerts Allergy Name Allergy Type Status Severity Reaction(s) Onset Date Inacti ve Date Treating Clinician Comments Source No Known Allergies DA Active U 2013-03-24 00:00:00 [facility] Medications Ordered Medication Name Filled Medication Name Start Date Stop Da te Current Medication? Ordering Clinician Indication Dosage Frequency Signature (SIG) Comments Components Source Levothyroxine Sodium (Synthroid) 75 Mcg Tab Levothyrox ine Sodium (Synthroid) 75 Mcg Tab Yes 75 [facility] Lisinopril 2.5 Mg Tablet Lisinopril 2.5 Mg Tablet Yes 2.5 Daily [facility] Procedures Procedure Date / Time Performed Performing Clinician [facility] e Magnetic resonance imaging of abdomen without then wit h contrast 2019-04-20 00:00:00 MELVA SANCHEZ [facility] US abdomen complete 2019-04-19 00:00:00 [facility] Computed tomography of abdomen and pelvis with contrast 2018 00:00:00 [facility] Encounters Start Date/Time End Date/Time [facility]counter Type Ad[email or web address] Department Encounter ID Source 2019-12-01 11:28:00 2019-12-01 11:28:00 Outpatient [facility] [id number] [facility] 2019-11-15 11:36:00 2019-11-15 11:36:00 Outpatient [facility] MED [id number] [facility] 2019-04-18 06:07:00 2019-04-21 12:35:00 Discharged Inpatient (obs) 1 PASTOR [facility] [id number] [facility] Results Test Description Test Time Test Comments Results Result Comments Source US THYROID ULTRASOUND 2019-06-01 13:45:56 CLINIC AL INDICATION: E04.1 Nontoxic single thyroid noduleTECHNIQUE: Real time and doppler imaging of the thyroid is performed using a high frequency probe on the [employer].Comparison Study: 04/08/2018FINDINGS:Right lobe: 3.4 x 1 x 1 cm.Left lobe: 4.4 x 1.7 x 1.7 cm.Isthmus: 2.5 mm.Comments: Few small cystic nodule is seen in the right lobe, largest measured 9 mm, stable.Left lobe is heterogeneous containing benign looking nodule inferiorly measured 2.4 x 1.8 x 1.5 cm, stable.Solid ISO echoic benign appearing nodule is seen in the left lobe measuring 1.7 x 1 cm, stable.Smaller 1.3 x 1.2 cm benign nodule is seen in the left lobe unchanged.IMPRESSION:1. Dominant left lobe with three stable/ benign appearing nodules .3. Few small benign cystic nodule in the right lobe, stable. Hepatitis A IgM Antibody 2019-04-21 08:48:00 Test Item Hepatitis A IgM Antibody (test code = 45437-4) Negative Negativ e [facility] B Surface Uayernv0383-59-14 08:48:00* Test Item Value Reference Range Interpretation Comments Hepatitis B Surface Antigen (test code = 5196-1) Negative Negat ailyn [facility] B Core IgM Peejtnah0974-49-58 08:48:00* Test Item Value Reference Range Interpretation Comments Hepatitis B Core IgM Antibody (test code = 36001-1) Negative Ne gative [facility] Zpyujfyt7162-82-36 08:48:00* Test Item Value Reference Range Interpretation Comments Hepatitis C Antibody (test code = 15670-6) 0.1 0.0-0.9 Negative: < 0.8 Indeterminate: 0.8 - 0.9 Positive: > 0.9 The CDC recommends that a positive HCV antibody result be followed up with a HCV Nucleic Acid Amplification test (722570).Performed at: [address] [id number] Director: Brian Momin MD, Phone: [phone] Hospitalodium Edogo0368-85-40 06:25:00 * Test Item Value Reference Range Interpretation Comments Sodium Level (test code = 2951-2) 137 136-145 [facility] CenterPotassium Scayh8016-35-46 06:25:00* Test Item Value Reference Range Interpretation Comments Potassium Level (test code = 2823-3) 3.6 3.5-5.1 [facility] CenterChloride Exowg8293-42-27 06:25:00* Test Item Value Reference Range Interpretation Comments Chloride Level (test code = 2075-0) 109 98-107 [facility] CenterCarbon Dioxide Emlxb2700-71-95 06:25:00* Test Item Value Reference Range Interpretation Comments Carbon Dioxide Level (test code = 2028-9) 24 22-29 [facility] CenterAnion Gig7139-97-84 06:25:00* Test Item Value Reference Range Interpretation Comments Anion Gap (test code = 58780-1) 7.6 8-16 [facility] CenterBlood Urea Gqjdioio8791-78-06 06:25:00* Test Item Value Reference Range Interpretation Comments Blood Urea Nitrogen (test code = 3094-0) 6 7-26 [facility] CenterCreatinine2019-06-13 06:25:00* Test Item Value Reference Range Interpretation Comments Creatinine (test code = 2160-0) 0.57 0.57-1.11 [facility] CenterBUN/Creatinine Bgjbv0105-63-71 06:25:00* Test Item Value Reference Range Interpretation Comments BUN/Creatinine Ratio (test code = 3097-3) 11 - [facility] CenterEstimat Glomerular Filtration Rate 2019-04-21 06:25:00* Test Item Value Reference Range Interpretation Comments Estimat Glomerular Filtration Rate (test code = 713711476) > 60 >60 Ranges were taken from the National Kidney Disease Education Program and the [facility] Kidney Foundation literature.Reference ranges:60 or greater: Nrlugt68-48 ( for 3 consecutive months): Chronic kidney disease 15 or less: Kidney failureThe University of [facility] M.[facility]. Anderson Cancer CenterGlucose Uqsmn2528-36-04 06:25:00* Test Item Value Reference Range Interpretation Comments Glucose Level (test code = ZCF1934) 89 74-118 [facility] CenterCalcium Srfgz2289-20-08 06:25:00* Test Item Value Reference Range Interpretation Comments Calcium Level (test code = 67011-9) 8.7 8.4-10.2 [facility] CenterTotal Evlxbkand3565-56-46 06:25:00* Test Item Value Reference Range Interpretation Comments Total Bilirubin (test code = 1975-2) 1.0 0.2-1.2 [facility] CenterAspartate Amino Transf (AST/SGOT) 2019-04-21 06:25:00* Test Item Value Reference Range Interpretation Comments Aspartate Amino Transf (AST/SGOT) (test code = Aspartate Amino Transf (AST/SGOT)) 101 5-34 [facility] CenterAlanine Aminotransferase (ALT/SGPT) 2019-04-21 06:25:00* Test Item Value Reference Range Interpretation Comments Alanine Aminotransferase (ALT/SGPT) (test code = 1742-6) 158 0-55 [facility] CenterTotal Shnorac8937-90-20 06:25:00* Test Item Value Reference Range Interpretation Comments Total Protein (test code = 2885-2) 5.2 6.5-8.1 [facility] CenterAlbumin2019-06-13 06:25:00* Test Item Value Reference Range Interpretation Comments Albumin (test code = 1751-7) 2.8 3.5-5.0 [facility] CenterGlobulin2019-06-13 06:25:00* Test Item Value Reference Range Interpretation Comments Globulin (test code = 12939-1) 2.4 2.3-3.5 [facility] CenterAlbumin/Globulin Rrlvn3866-02-20 06:25:00 * Test Item Value Reference Range Interpretation Comments Albumin/Globulin Ratio (test code = 1759-0) 1.2 0.8-2.0 [facility] CenterAlkaline Wtwyxuiiiof1593-04-60 06:25:00* Test Item Value Reference Range Interpretation Comments Alkaline Phosphatase (test code = 6768-6) 175 40-150 [facility] CenterWhite Blood Voruq8062-69-48 05:55:00* Test Item Value Reference Range Interpretation Comments White Blood Count (test code = 6690-2) 5.75 4.8-10.8 [facility] CenterRed Blood Lauah2996-49-14 05:55:00* Test Item Value Reference Range Interpretation Comments Red Blood Count (test code = 789-8) 3.21 3.6-5.1 [facility] CenterHemoglobin2019-06-13 05:55:00* Test Item Value Reference Range Interpretation Comments Hemoglobin (test code = 82085-5) 10.0 12.0-16.0 [facility] CenterHematocrit2019-06-13 05:55:00* Test Item Value Reference Range Interpretation Comments Hematocrit (test code = 4544-3) 30.7 34.2-44.1 [facility] CenterMean Corpuscular Tsnnxd8043-21-22 05:55:00* Test Item Value Reference Range Interpretation Comments Mean Corpuscular Volume (test code = 787-2) 95.6 81-99 [facility] CenterMean Corpuscular Ejxuwxlnwm6447-81-76 05:55:00* Test Item Value Reference Range Interpretation Comments Mean Corpuscular Hemoglobin (test code = 785-6) 31.2 28-32 [facility] CenterMean Corpuscular Hemoglobin Concent 2019-04-21 05:55:00* Test Item Value Reference Range Interpretation Comments Mean Corpuscular Hemoglobin Concent (test code = 786-4) 32.6 31-35 [facility] CenterRed Cell Distribution Tzbii6115-73-51 05:55:00* Test Item Value Reference Range Interpretation Comments Red Cell Distribution Width (test code = 55456-3) 13.6 11.7 -14.4 [facility] CenterPlatelet Bzuir7639-30-10 05:55:00* Test Item Value Reference Range Interpretation Comments Platelet Count (test code = 777-3) 202 140-360 [facility] CenterNeutrophils (%) (Auto)2019-04-21 05:55:00 * Test Item Value Reference Range Interpretation Comments Neutrophils (%) (Auto) (test code = 58472-1) 50.7 38.7-80.0 [facility] CenterLymphocytes (%) (Auto)2019-04-21 05:55:00 * Test Item Value Reference Range Interpretation Comments Lymphocytes (%) (Auto) (test code = 736-9) 30.8 18.0-39.1 [facility] CenterMonocytes (%) (Auto)2019-04-21 05:55:00* Test Item Value Reference Range Interpretation Comments Monocytes (%) (Auto) (test code = 5905-5) 14.3 4.4-11.3 [facility] CenterEosinophils (%) (Auto)2019-04-21 05:55:00 * Test Item Value Reference Range Interpretation Comments Eosinophils (%) (Auto) (test code = 713-8) 3.0 0.0-6.0 [facility] CenterBasophils (%) (Auto)2019-04-21 05:55:00* Test Item Value Reference Range Interpretation Comments Basophils (%) (Auto) (test code = 706-2) 0.5 0.0-1.0 [facility] CenterIM GRANULOCYTES %2019-04-21 05:55:00* Test Item Value Reference Range Interpretation Comments IM GRANULOCYTES % (test code = IM GRANULOCYTES %) 0.7 0.0- 1.0 [facility] CenterNeutrophils # (Auto)2019-04-21 05:55:00* Test Item Value Reference Range Interpretation Comments Neutrophils # (Auto) (test code = 751-8) 2.9 2.1-6.9 [facility] CenterLymphocytes # (Auto)2019-04-21 05:55:00* Test Item Value Reference Range Interpretation Comments Lymphocytes # (Auto) (test code = 92305-4) 1.8 1.0-3.2 [facility] CenterMonocytes # (Auto)2019-04-21 05:55:00* Test Item Value Reference Range Interpretation Comments Monocytes # (Auto) (test code = 742-7) 0.8 0.2-0.8 [facility] CenterEosinophils # (Auto)2019-04-21 05:55:00* Test Item Value Reference Range Interpretation Comments Eosinophils # (Auto) (test code = 711-2) 0.2 0.0-0.4 [facility] CenterBasophils # (Auto)2019-04-21 05:55:00* Test Item Value Reference Range Interpretation Comments Basophils # (Auto) (test code = 704-7) 0.0 0.0-0.1 [facility] CenterAbsolute Immature Granulocyte (auto 2019-04-21 05:55:00* Test Item Value Reference Range Interpretation Comments Absolute Immature Granulocyte (auto (layla t code = Absolute Immature Granulocyte (auto) 0.04 0-0.1 [facility] CenterHEPTOBILIARY W IQEZE4421-69-22 19:48:00 [place] [address] Patient Name: VAN VUONG MR #: [id number] : 1955 Age/Sex: 63/F Req #: [id number] [facility] Physician: LETY DOUGLASS MD Ordered by: MELVA SANCHEZ MD Report #: [id number] Location: [facility]/SURG Room/Bed: [facility] Procedure: [id number] NM /HEPTOBILIARY W PHARM Exam Date: 04/20/19 Exam Time: 1145 REPORT STATUS: Signed Hepa tobiliary Scan with Gallbladder Ejection Fraction Clinical information: Upp er abdominal pain; abnormal LFTs; Report: Following intravenous administra tion of 6.6 millicuries of Tc-99m mebrofenin, dynamic images of the abdomen in the anterior projection were obtained through 25 minutes. Sincalide (CCK tam log) 1.6 micrograms was administered intravenously over 30 minutes with additi onal imaging for determination of gallbladder ejection fraction. Perfusio n to the liver is normal. Extraction of tracer from the blood pool by the [facility] er parenchyma is normal. Tracer is seen promptly within the biliary tract. T he gallbladder begins to fill by 7 minutes post-injection of tracer and fills adequately. Tracer is seen in the small bowel by 12 minutes. The gallbladder ejection fraction with administration of sincalide is 96% (normal greater than 40%). Impression: 1. Filling of the gallbladder excludes the diagn osis of acute cystic duct obstruction/acute cholecystitis. 2. 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 Signed by: Dr. Hamlet Lu M.D. on 04/20/2019 7:54 PM Dictated By: HAMLET LU MD 53 Transcribed By: ERVIN on 04/20/191953 COPY TO: MELVA SANCHEZ MD MRI ABDOMEN [id number] 13:09:00 [place] [address] Patient Name: VAN VUONG MR #: [id number] : 1955 Age/Sex: 63/F Req #: [id number] Adm Physician: LETY DOUGLASS MD Ordered by: MELVA SANCHEZ MD Report #: [id number] Location: MED/SURG2 Room/Bed: [facility] Procedure: [id number] MR I/MRI ABDOMEN WOW Exam Date: Exam Time: REPORT STATUS: Signed MRI abdomen CPT code: 41913 Indication: Incidental liver mass on CT LIVER MASS PROTOCOL Y Technique: Axial T1 nonfat sat in and out of phase, axial T2 fat sat, coronal T2 nonfat sat, axial DWI and ADC MR images of the abdomen were obtai loree before and after the administration of 15 cc of gadolinium. Axial T1 fat sat GRE dynamic images in precontrast, arterial, venous and delayed phases wer e obtained. Comparison: CT abdomen/pelvis 04/19/2019 Findings: L iver: Normal signal. A cyst in segment 2/4 measures 1.5 x 1.0 cm. A 4 mm c yst is identified in segment 6. Rounded area of increased T2 signal abuts the capsule in the posterior aspect of segment 6 measures 1.9 x 2.7 cm. There are 2 subcentimeter foci of decreased T2 and T1 signal within. With contrast administration, there is a wedge-shaped area of hypervascularity measuring 2.6 x 2.5 cm. Within this is more focal hypervascularity in the rounded configura tion measuring 1.4 x 1.2 cm. On the portal venous phase, it has a more uniform enhancing appearance with absence of enhancement of one of the subcentimeter foci mentioned above. On the delayed phase, there is nearly iso-signal without no evidence of washout and there is no evidence of enhancement of the subcent imeter foci. There are 2 round hypervascular foci in segment 6 (series 10, image 74) and segment 5 abutting the gallbladder (series 10, image 90). These measure approximately 6 to 7 mm. There is no evidence of washout on delayed se jude. Portal vein: Normal in size and widely patent. Hepatic veins: Elli l. Hepatic artery: Conventional branching. Gallbladder: Present and conta ins a tiny amount of sludge and a tiny gallstone. No gallbladder wall thickeni ng or pericholecystic fluid. Biliary tree: No intrahepatic or extrahepatic biliary ductal dilatation. Pancreas: Normal T1 and T2 signal. No mass or du ctal dilatation. Spleen: Normal size and signal. No mass Adrenal gland s: No mass Kidneys: No hydronephrosis. No mass Lymph nodes: No enlarge d abdominal or periaortic lymph nodes Bowel: Stomach and visualized portion s of the small bowel and large bowel are normal in diameter with normal wall t hickness. Mild burden of diverticulosis coli. Vasculature: Unremarkable. Pelvis: Visualized pelvic organs are unremarkable. Peritoneum/retroper itoneum: No free fluid or fluid collection. Lung bases: Trace posterior ple ural effusions. Bones: Normal marrow signal. No focal osseous lesions. Soft tissues: Unremarkable. IMPRESSION: 1. Mass in the right lobe of the liver has no diagnostic features by MRI. However, the presence of iso-sign al and the absence of washout on delayed sequences raises the possibility of a n FNH. Recommend confirmation with MRI utilizing a liver specific contrast age nt such as gadoxetate. 2. Scattered hepatic cysts as described above. A sub centimeter hypervascular lesion in the right lobe the liver is likely a shunt. 3. No abnormalities of the gallbladder and biliary tree. 4. Diverticu losis coli. Signed by: Dr. Scarlet Falk MD on 04/20/2019 1:36 PM Dictated By: SCARLET FALK MD 1336 Transcribed By: ERVIN on 04/20/19 1336 COPY TO: MELVA SANCHEZ MD Vitamin B12 Btcpo1628-97-21 07:18:00* Test Item Value Reference Range Interpretation Comments Vitamin B12 Level (test code = 48259-0) 499 213-816 [facility] CenterFolate2019-06-12 07:18:00* Test Item Value Reference Range Interpretation Comments Folate (test code = 2284-8) 14.8 7.0-15.4 [facility] CenterFerritin2019-06-12 07:01:00* Test Item Value Reference Range Interpretation Comments Ferritin (test code = 2276-4) 96.06 4.63-204.00 [facility] CenterIron Bxnmq6269-39-79 06:43:00* Test Item Value Reference Range Interpretation Comments Iron Level (test code = 2498-4) 19 50-170 [facility] CenterTotal Iron Binding Pudmkncw6392-08-64 06:43:00* Test Item Value Reference Range Interpretation Comments Total Iron Binding Capacity (test code = 2500-7) 280 261-4 78 [facility] CenterPercent Iron Qkjslelwcd4701-62-52 06:43:00* Test Item Value Reference Range Interpretation Comments Percent Iron Saturation (test code = 2502-3) 7 15-50 [facility] CenterTransferrin2019-06-12 06:43:00* Test Item Value Reference Range Interpretation Comments Transferrin (test code = 3034-6) 200 180-382 [facility] CenterPercent Reticulocyte Uukyg7831-78-45 05:40:00* Test Item Value Reference Range Interpretation Comments Percent Reticulocyte Count (test code = 16004-9) 1.8 0.8-2 .2 [facility]CT [facility]LVIS [id number] 15:49:00 [facility] [address] [place] [address] Patient Name: VAN VUONG MR #: [id number] : 1955 Age/Sex: 63/F Req #: [id number] Adm Physician: LETY DOUGLASS MD Ordered by: LETY DOUGLASS MD Report #: [id number] Location: MED/SURG2 Room/Bed: [facility] Procedure: [id number] CT/ CT ABDOMEN/PELVIS W Exam Date: 04/19/19 Exam Time: 1 515 REPORT STATUS: Signed EXAM: CT Abdomen and Pelvis with contrast INDICATION: Elevated LFTs COMPAR MARY: Abdominal ultrasound 04/19/2019, CT Chest 04/18/2019. TECHNIQUE: Abdom en and pelvis were scanned utilizing a multidetector helical scanner from the lung base to the pubic symphysis after administration of IV contrast. Coronal and sagittal reformations were obtained. Routine protocol was performed. Scan was performed when during portal venous phase. IV CONTRAST: 100 cc of Isovue 370 ORAL CONTRAST: Water COMPLICATIONS: None RADIATION DOSE: Total DLP: 665.6 mGy*cm Dose modulation, iterative reconstruction, and/or weight based adjustment of the mA/kV was utilized to reduce the radiation dose to as low as reasonably achievable. FINDINGS: LINES and TUBES: None. LOWER THORAX: Please refer to chest CT from 2018 for details of intrathoracic findings. HEPATOBILIARY: Hepatomegaly. Left hepatic lobe cyst. No biliary ductal dilatation. There is a 1.9 cm hyperd ense area with a somewhat linear internal hypodensity in the peripheral linen sorter ior aspect of segment 6. GALLBLADDER: No radio-opaque stones or sludge. No wall thickening. SPLEEN: No splenomegaly. PANCREAS: No focal masses or ductal dilatation. ADRENALS: No adrenal nodules KIDNEYS/URETERS: Kidneys enhance symmetrically. No evidence of hydronephrosis, solid mass, or stone. 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 No evidence of wall thickening or distension. Appendix is normal. PELVIC ORGANS/BLADDER: Ca lcified fibroid in the uterus. LYMPH NODES: No lymphadenopathy. VESSE LS: Unremarkable. PERITONEUM / RETROPERITONEUM: No free air or fluid. BONES AND SOFT TISSUES: There is stranding in the right inguinal region, likely representing access site for recent cardiac angiography. CONCLUSION: A 1.9 cm hyperdense area in the peripheral aspect of segment 6 may represent pe rfusional change or a liver lesion. A liver protocol CT or MRI is suggested fo r further evaluation. Hepatomegaly. Signed by: Dr. Jesse Barajas MD on 04/19/2019 4:07 PM Dictated By: JESSE BARAJAS MD 1602 Transcribed By: ERVIN on 04/19/19 1607 CO PY TO: LETY DOUGLASS MD ABDOMEN WPPSKZFA4700-90-72 14:10:00 [place] [address] Patient Name: VAN VUONG MR #: [id number] : 1955 Age/Sex: 63/F Req #: [id number] Adm Physician: LETY DOUGLASS MD Ordered by: LETY DOUGLASS MD Report #: [id number] Location: MED/SURG2 Room/Bed: [facility] Procedure: [id number] US/ US ABDOMEN COMPLETE Exam Date: 04/19/19 Exam Time: 1 327 REPORT STATUS: Signed EXAM: US ABDOMEN COMPLETE INDICATION: Elevated LFTs. COMPARISON: None TECHNIQUE: Transverse and longitudinal aguirre scale and color doppler sonographic images of the abdomen were obtained. FINDINGS: LIVER Measures 17.6 cm in the right midclavicular line. Multiple echogenic foci in the liver with a starry celeste appearance. No hepatic steatosis. Normal contour without evidence of mass. SPLEEN 10.0 cm in maximum diameter. Normal echogenicity, no masses. GALLBLADDER Gallbladder sludge. No gallbladder wall thickening, distension, stone, or pericholecystic fluid. Negative reported sonographic Mu rphy's sign. BILE DUCTS No intra nor extra-hepatic biliary dilation. Co mmon bile duct measures 0.4 cm PANCREAS: Visualized portions are normal. RIGHT KIDNEY: 10.4 cm Echogenicity: Normal Collecting System: No hydrone phrosis Stones: None Cyst/Mass: None LEFT KIDNEY: 10.9 cm Echogenici ty: Normal Collecting System: No hydronephrosis Stones: None Cyst/Mass: None VESSELS: Aorta: Visualized portions are within normal size limits Inferior Vena Cava: Visualized portions are normal Main Portal Vein: 0.8 cm, n ormal size with hepatopetal flow. FREE FLUID: None IMPRESSION: Hepat omegaly. Starry celeste appearance of the liver, which is a nonspecific finding, b ut could be seen in hepatitis or fasting state. Gallbladder sludge without sonographic evidence of cholecystitis. Signed by: Dr. Jesse Barajas MD on 04/09 2:16 PM Dictated By: JESSE BARAJAS MD 1416 Transcribed By: ERVIN on 04/19/19 1416 COPY TO: LETY DOUGLASS MD [id number] 12:18:00* Test Item Value Reference Range Interpretation Comments Lipase (test code = 3040-3) 39 8-78 [facility]Hemoglobin A1c [id number] 06:31:00 * Test Item Value Reference Range Interpretation Comments Hemoglobin A1c Percent (test code = Hemoglobin A1c Percent) 5.2 4.0-7.0 [facility] CenterTriglycerides [id number] 06:25:00* Test Item Value Reference Range Interpretation Comments Triglycerides Level (test code = 2571-8) 74 0-149 [facility] CenterCholesterol [id number] 06:25:00* Test Item Value Reference Range Interpretation Comments Cholesterol Level (test code = 2093-3) 146 0-199 Less than 200 mg/dL Low Azbg769 - 239 mg/dL Borderline Sxqs466 m g/dl and greater High Risk [facility] CenterLDL [id number] 06:25:00* Test Item Value Reference Range Interpretation Comments LDL Cholesterol (test code = 2089-1) 62 60-130 [facility] CenterHDL Rjajfmrypvd8009-42-02 06:25:00* Test Item Value Reference Range Interpretation Comments HDL Cholesterol (test code = 2085-9) 69 40-60 [facility] CenterCholesterol/HDL Ljxce1105-31-03 06:25:00 * Test Item Value Reference Range Interpretation Comments Cholesterol/HDL Ratio (test code = 9830-1) 2.1 3.0-3.6 [facility] CenterCreatine [id number] 23:30:00* Test Item Value Reference Range Interpretation Comments Creatine Kinase (test code = 2157-6) 45 29-168 [facility] CenterCreatine Kinase [id number] 23:30:00* Test Item Value Reference Range Interpretation Comments Creatine Kinase MB (test code = 05639-1) 0.90 0-5.0 [facility] CenterTroponin [id number] 23:30:00* Test Item Value Reference Range Interpretation Comments Troponin I (test code = HII0654) < 0.001 0-0.300 [facility] CenterThyroid Stimulating Hormone (TSH) 2019-04-18 15:33:00* Test Item Value Reference Range Interpretation Comments Thyroid Stimulating Hormone (TSH) (test code = 14243-7) 0.557 0.350-4.940 [facility] CenterCT CHEST WITH RFRYPSYO-[id number] 06:54:00 [place] [id number] [place] [address] Patient Name: VAN VUONG MR #: [id number] : 1955 Age/Sex: 63/F Req #: [id number] Adm Physician: LETY DOUGLASS MD Ordered by: JOSHUA HERNANDEZ MD Report #: [id number] Location: [facility] Room/Bed: [place] [address] Procedure: [id number] HOPD /CT CHEST WITH CONTRAST-HOPD Exam Date: Exam Time: REPORT STATUS: Signed EXAM: CT Chest WITH contrast (PE Protocol) INDICATION: Chest pain. COMPARISON: Same day chest x-ray TECHNIQUE: Chest was scanned utilizing a multidetec tor helical scanner from the lung apex through the level of the diaphragm afte r administration of IV contrast. Thin section reconstructions were obtained wi th special concentration on the pulmonary arteries. Coronal and sagittal refor mations were obtained. Dose modulation, iterative reconstruction, and/or weigh t based adjustment of the mA/kV was utilized to reduce the radiation dose to a s low as reasonably achievable. Pulmonary embolism protocol was performed. IV CONTRAST: 100 mL of Isovue-370 COMPLICATIONS: None RADIATION DO SE: Total DLP: 391.99 mGy*cm Estimated effective dose: (DLP x 0.0 14 x size factor) mSv CTDIvol has been reviewed. It is below the limits s et by the Radiation Protocol Committee (RPC). FINDINGS: LINES/ TUBES : None. LUNGS AND AIRWAYS: No filling defect is identified within the pulmo nary arteries to the segmental level. 5 mm right upper lobe nodule. Mild bila teral lower lung field subsegmental atelectasis. Mild haziness of the lung fie lds, suggestive of mild interstitial edema. Left upper lobe calcified granulom a. Airways are normal. PLEURA: The pleural spaces are clear. HEART AND MEDIASTINUM: Left thyroid hypodense nodule No mediastinal, hilar or axill kofi lymphadenopathy. The heart is normal in size.. There is no pericardial ef fusion. . Main pulmonary artery measures 3.3 cm in diameter and the ascen ding aorta measures 4 cm. UPPER ABDOMEN: Left hepatic lobe hypodensity is p robably a cyst. Evidence of gastric surgery. Small hiatal hernia. BONES: The visualized bony thorax is within normal limits. SOFT TISSUES: Unremarka ble. IMPRESSION: No pulmonary emboli. Suspected mild pulmonary edema. 5 mm right upper lobe nodule. Without risk factors, no follow-up is necessary. With risk factors, follow-up with low-dose chest CT in one year is optional. Distended main pulmonary artery, suggestive of pulmonary hypertension. Ectatic ascending thoracic aorta. Left thyroid hypodense nodule. Recommend correlation with thyroid ultrasound. Signed by: Dr. Sam Mao MD on 04/18/2019 7:01 AM Dictated By: SAM MAO MD 0 Transcribed By: ERVIN on 04/18/19700 COPY TO: JOSHUA HERNANDEZ MD CXR 2 VIEW - [id number] 06:44:00 [place] [address] Patient Name: VAN VUONG MR #: [id number] : 1955 Age/Sex: 63/F Req #: [id number] Adm Physician: LETY DOUGLASS MD Ordered by: GLENIS CASAS MD Report #: [id number] Location: [facility] Room/Bed: [place] [address] Procedure: [id number] HOPD/CXR 2 VIEW - HOPD Exam Date: 04/18/19 Exam Raza e: 0521 REPORT STATUS: Signed EX AMINATION: CXR 2 VIEW - HOPD INDICATION: [id number] COMPARISON: None FINDINGS: PA and lateral views TUBES and KAREN ES: None. LUNGS: Lungs are well inflated. There is no evidence of pneumo jackson or pulmonary edema. PLEURA: No pleural effusion or pneumothorax. HEART AND MEDIASTINUM: The cardiomediastinal silhouette is unremarkable. BONES AND SOFT TISSUES: No acute osseous lesion. Soft tissues are unrem arkable. UPPER ABDOMEN: No free air under the diaphragm. IMPRESSIO N: No acute thoracic abnormality. Signed by: Dr. Sam Mao MD on 04/18/2019 6:44 AM Dictated By: SAM MAO MD 3 Transcribed By: ERVIN on 04/18/19643 COPY TO: GLENIS CASAS MD Culture, Wound [id number] 11:26:00Specimen/Source: Wound/LT.SM. FINGERCollected: 02/24/2017 16:55 Status: Final Last [...] <=8/4 Resistant Cefazolin (CFZ) <=4 Resistant Ceftriaxone ([facility]) < =4 Resistant Chloramphenicol (C) <=8 Susceptible Ciprofloxacin (CP) <=1 Susceptible Clindamycin (CM) 0.5 Susceptible Erythromycin (E) <=0.25 Susceptible Gentamicin (GM) <=1 Susceptible Imipenem (IMP) >8 Resistant Levofloxacin (LEV) <=0.5 Susceptible Linezolid (LNZ) 1 Susceptible Oxacillin (OX1) 2 Resistant Penicillin (P) >8 Resistant Rifampin (RA) <=1 Susceptible Tetracycline (TE) <=1 Susceptible Trimethoprim/Sulfa <=0.5/9.Susceptible (SXT) 5 Vancomycin (VA) 2 Susceptible US THYROID ULTRASOUNDCLINICAL INDICATION: E04.1 Nontoxic single thyroid noduleTECHNIQUE: Real time and doppler imaging of the thyroid is performed using a high frequency probe on the [employer] Pre[employer].Comparison Study: Comparison with exam 8FINDINGS:Right lobe: 4.2 x 1.2 x 1.2 cm.Left lobe: 4.9 x 1.9 x 2.1 cm.Isthmus: 4.0 mm.Comments: 1. 0.9 x 0.4 x 0.6 cm cyst superior pole right thyroid, unch anged.2. 0.5 x 0.2 x 0.4 cm hypoechoic nodule mid right thyroid, with small deidra cifications, unchanged.3. 2.3 x 1.7 x 2.1 cm complex nodule inferior right glan d (previous 2.6 x 1.6 x 1.8 cm).4. 2.0 x 1.4 x 1.5 cm superior left gland (prev ious 2.0 x 1.2 x 1.4 cm).5. 1.2 x 0.6 x 0.8 cm hypoechoic nodule in the mid lef t gland it appeared as if it were to nodules on previous exam.IMPRESSION:1. No significant change in gland size.2. Multiple nodules again seen.3. No signific ant change with measurement of complex inferior right gland nodule slightly smal ler than previous exam. Continued surveillance are that there is a of left super ior nodule can be considered.US THYROID ULTRASOUNDCLINICAL INDICATION: E04.2 Nontoxic multinodular goiterTECHNIQUE: Real time and doppler imaging of the thyroid is performed using a high frequency probe on the [employer] Preirus.Comparison Study: noneFINDINGS:Right lobe: 4.3 x 1.1 x 1.0 cm.Left lobe: 4.9 x 1.9 x 1.6 cm.Isthmus: 1.6 mm.Comments: Multiple thyroid nodules are demonstrated. 0.9 x 0.6 cm right mid, 0.6 x 0.5 cm right inferior mid (with calcifications), 2.0 x 1.4 cm left mid, 2.6 x 1.9 x 1.6 cm left inferior and additional smaller thyroid nodules are demonstrated bilaterally.IMPR ESSION:Multinodular goiter; consider FNA of left superior thyroid nodule based u alphonse size and sonographic appearance.CR - XRAY XRAY DEXA BONE DENSITYCLINICAL INDICATION: N95.9 Unspecified menopausal and perimenopausal disorder TECHNIQUE: Bone densitometry is performed using the [employer] Dexa. Imaging of t he spine and hip are performed. Quantitative analysis is accomplished.FINDINGS:C OMPARISON: NoneThe BMD at the left femoral neck is 0.710 gms/cm.sq. This is c onsistent with young adult T-score of -1.4 and age matched Z-score of 0.0.The BM D at the right femoral neck is 0.686 gms/cm.sq. This is consistent with young ad ult T-score of -1.6 and age matched Z-score of -0.2.Average bone mineral density of L1 - L4 is 0.779 gms/cm.sq. This is consistent with young adult T-score of - 2.4 and age matched Z-score of -0.8.IMPRESSION:WHO diagnostic category is osteop enia/borderline osteoporosis based upon lumbar spine and osteopenia based upon b ilateral femoral necks.Recommendation: 2-year follow-up
[2020-04-04] MEDS ORDERED: HYDROCODONE/APAP 5MG-325MG TAB PO ONE (13:30)
--- NOTE | 2020-04-04 13:50 | Diagnostic Imaging Report ---
EXAMINATION: HAND 3 VIEW RT - HOPD INDICATION: Fall COMPARISON: None FINDINGS: No acute fracture or dislocation. Alignment appears anatomic. No substantial degenerative change. Soft tissues appear unremarkable. IMPRESSION: No acute osseous injury. Signed by: Bud Whiting MD on 04/04/2020 1:47 PM
--- NOTE | 2020-04-04 13:59 | Diagnostic Imaging Report ---
EXAMINATION: WRIST 3VW RT - HOPD INDICATION: Fall COMPARISON: None FINDINGS: No acute fracture or dislocation. Alignment appears anatomic. Soft tissues appear unremarkable. IMPRESSION: No acute osseous injury. Signed by: Bud Whiting MD on 04/04/2020 1:56 PM
--- NOTE | 2020-04-04 14:15 | Diagnostic Imaging Report ---
EXAMINATION: TIB/FIB 2 VW LT - HOPD, FEMUR 2VIEW LT - HOPD, KNEE 3VW LT - HOPD INDICATION: Fall COMPARISON: None FINDINGS: Femur: No acute fracture or dislocation. Alignment is anatomic. Soft tissues appear unremarkable. Knee: No acute fracture or dislocation. Anatomic alignment. Moderate suprapatellar joint effusion. Tibia/fibula no acute fracture or dislocation. Alignment is anatomic. No substantial ankle effusion. IMPRESSION: No acute osseous injury. Moderate suprapatellar joint effusion of the left knee. Signed by: Bud Whiting MD on 04/04/2020 2:12 PM
[2020-04-04] MEDS ORDERED: HYDROCODONE/APAP 5MG-325MG TAB ONE (14:25)
[2020-04-04] MEDS ORDERED: TYLENOL WITH C1 EACH PO (14:29)
--- NOTE | 2020-04-04 14:34 | Emergency Department Note ---
History of Present Illnes History of Present Illness Chief Complaint: Extremity Trauma/Pain History of Present Illness This is a 64 year old female Chief Complaint Comment PT STATED SHE WAS STANDING ON A STEP STOOL AND FELL ONTO THE GRASS INJURING HER RIGHT WRIST AND LEFT KNEE, PT HAS SOME SWELLING WITH LIMITED ROM, NO OBVIOUS DEFORMITY . Historian: Patient Arrival Mode: Car Onset (how long ago): hour(s) (1) Location: right knee Quality: sharp Radiation: non-radiation, back, neck, extremity, abdomen, periumbilical, flank, proximal, distal, other Severity: severe Onset quality: sudden Duration (how long): hour(s) (1) Timing of current episode: constant Progression: worsening Chronicity: new Context: recent illness, recent surgery, recent immobilization, recent travel, trauma/injury, new medications, hx of DVT/PE, non-compliance w/ medications, other Relieving factors: none Exacerbating factors: none Associated symptoms: denies other symptoms Treatments prior to arrival: none Past Medical/Family History Physician Review I have reviewed the patient's past medical and family history. Any updates have been documented here. Past Medical History Recent Fever: No Clinical Suspicion of Infectio: No New/Unexplained Change in Ment: No Past Medical History: Hypertension, Hypothyroidism Other Medical History: [place] Past Surgical History: Bariatric Surgery Other Surgery: GASTRIC BYPASS 2012 Social History Smoking Cessation: Never Smoker Counseling Performed: No Alcohol Use: None Any Illegal Drug Use: No TB Exposure/Symptoms: No Physically hurt or threatened: No Other Last Tetanus: UNK Any Pre-Existing Lines (PICC,: No Is patient up to date on immun: Yes Last Flu: YES Last Pneumovax: YES Review of Systems Review of Systems Constitutional: no symptoms EENTM: no symptoms Cardiovascular: no symptoms Respiratory: no symptoms Gastrointestinal: no symptoms Genitourinary: no symptoms Musculoskeletal: as per HPI Neurological: no symptoms Psychological: no symptoms Endocrine: no symptoms Hematological/Lymphatic: no symptoms Review of other systems All other systems reviewed and negative. Physical Exam Related Data Allergies: Coded Allergies: No Known Allergies (Unverified , 04/18/19) Triage Vital Signs Vital Signs Date Time Temp Pulse Resp B/P (MAP) Pulse Ox O2 Delivery O2 Flow Rate FiO2 04/04/20 13:10 98.2 60 15 175/79 100 Vital signs reviewed: Yes Physical Exam CONSTITUTIONAL Constitutional: well-developed, well-nourished HENT HENT: normocephalic, atraumatic, oropharynx clear/moist, nose normal HENT L/R: left ext ear normal, right ext ear normal EYES Eyes: PERRL, conjunctivae normal NECK Neck: ROM normal PULMONARY Pulmonary: effort normal, breath sounds normal CARDIOVASCULAR Cardiovascular: regular rhythm, heart sounds normal, capillary refill normal, normal rate GASTROINTESTINAL Abdominal: soft, nontender, bowel sounds normal GENITOURINARY Genitourinary: exam deferred SKIN Skin: warm, dry MUSCULOSKELETAL swelling and tenderness left knee and right wrist Musculoskeletal: ROM normal NEUROLOGICAL Neurological: alert, oriented x 3, no gross motor or sensory deficits PSYCHOLOGICAL Psychological: mood/affect normal, judgement normal Results Imaging Imaging results reviewed: Yes Critical Care Time Subsequent provider I assumed direction of critical care for this patient from another provider of my specialty. Assessment & Plan Assessment & Plan Final Impression: (1) Acute pain due to trauma (2) Contusion of knee, left (3) Contusion of wrist, right Assessment & Plan tylenol with codein Depart Disposition: HOME, SELF-CARE Last Vital Signs Date Time Temp Pulse Resp B/P (MAP) Pulse Ox O2 Delivery O2 Flow Rate FiO2 04/04/20 13:10 98.2 60 15 175/79 100 Home Meds Active Scripts Acetaminophen With Codeine (TYLENOL WITH CODEINE #3 TABLET) 1 Each Tablet, 300 MG PO TID for pain, #20 TAB Prov:TARYN DAWSON MD 04/04/20 Reported Medications Levothyroxine Sodium (SYNTHROID) 75 Mcg Tab, 75 MCG PO, #30 TAB 04/18/19 Lisinopril (LISINOPRIL) 2.5 Mg Tablet, 2.5 MG PO DAILY, #30 TAB 04/18/19 Medications in the ED Acetaminophen/ Hydrocodone Bitart 1 ea ONCE ONCE PO Last administered on 04/04/20at 14:20; Admin Dose 1 EA; Start 04/04/20 at 13:30; Stop 04/04/20 at 13:42; Status DC Acetaminophen/ Hydrocodone Bitart 1 ea STK-MED ONCE .ROUTE ; Start 04/04/20 at 14:25; Stop 04/04/20 at 14:21; Status DC TARYN DAWSON MD April 04, 2020 14:34
[2020-04-04 14:39] VITALS: BP 167/72
== END 2020-04-04 14:49 | disposition home or self-care (01) ==
LOC: FSED 13:02
DX: S60.211A Contusion of right wrist, initial encounter (principal); S80.02XA Contusion of left knee, initial encounter; W17.89XA Other fall from one level to another, initial encounter; Y92.007 Garden or yard of unspecified non-institutional (private) residence as the place of occurrence of the external cause; I10 Essential (primary) hypertension; E03.9 Hypothyroidism, unspecified; Z98.84 Bariatric surgery status
CPT/HCPCS: 99284

== ENCOUNTER 2021-05-26 16:24 | Emergency (ER) | payer OTHER, BC ==
[~2021-05-26] VITALS: Ht 154.9 cm; Wt 77.1 kg
[~2021-05-26 16:24] MED LIST changes: +TYLENOL WITH C1 EACH PO
[2021-05-26] MEDS ORDERED: TETANUS/DIPHTHERIA TOX ADULT 0.5 ML SYR IM ONE (17:30)
== END 2021-05-26 18:37 | disposition home or self-care (01) ==
LOC: ER 16:56
DX: S61.452A Open bite of left hand, initial encounter (principal); L03.114 Cellulitis of left upper limb; W54.0XXA Bitten by dog, initial encounter; I10 Essential (primary) hypertension; E03.9 Hypothyroidism, unspecified; Z98.84 Bariatric surgery status
CPT/HCPCS: 90714; 99283